=== PATIENT | female | born 1970 | race Caucasian/White ===

== ENCOUNTER → 2017-11-01 10:05 | Outpatient (CLI) | payer BC, SELFPAY ==
[2017-11-01 11:38] LABS: Alanine Aminotransferase 38 U/L (12-78); Albumin Level 3.8 gm/dL (3.4-5.0); Albumin/Globulin Ratio 1.1 (1.1-1.8); Alkaline Phosphatase 94 U/L (46-116); Anion Gap 14.5 mEq/L (5-15); Aspartate Amino Transferase 16 U/L (15-37); Bilirubin,Total 0.4 mg/dL (0.2-1.0); Blood Urea Nitrogen 12 mg/dL (7-18); Calcium 9.4 mg/dL (8.5-10.1); Carbon Dioxide 26 mmol/L (21.0-32.0); Chloride 105 mmol/L (98-107); Chol/HDL Ratio 5.7 (1-3.5); Cholesterol 235 mg/dL (140-200); Creatinine,Serum 0.84 mg/dL (0.55-1.02); Estimated Glomerular Filt Rate 73 ml/min (>60); GFR (African American) 89 ML/MIN (>60); Globulin 3.6 gm/dl (1.3-3.2); Glucose 107 mg/dL (74-106); HDL Cholesterol 41 mg/dL (29-89); LDL Cholesterol 155 mg/dL (0-130); Potassium 4.5 mmoL/L (3.5-5.1); Sodium 141 mmol/L (136-145); Total Protein,Serum 7.4 gm/dL (6.4-8.2); Triglycerides 193 mg/dL (30-200); VLDL Cholesterol 39 mg/dL (0-40)
== END ==
PROVIDERS: Visit Provider Nurse Practitioner Family
DX: Z00.00 Encounter for general adult medical examination without abnormal findings (principal); E78.5 Hyperlipidemia, unspecified
CPT/HCPCS: 36415; 80053; 80061

== ENCOUNTER → 2017-11-03 16:42 | Outpatient (CLI) | payer BC, SELFPAY ==
--- NOTE | 2017-11-03 | MM_ITS ---
MM Dig screening mamm BI w/CAD CAD Screening COMPARISON: Digital mammograms 07/05/2013 and 12/28/2012 INDICATION: There is no personal or family history of breast cancer TECHNIQUE: Standard CC and MLO images were obtained. R2 CAD reviewed. FINDINGS: Scattered fibroglandular densities are seen throughout both breasts and the findings are bilateral and symmetrical. There is a stable benign-appearing nodular density near the axillary tail right breast and this is stable somewhat tubular appearing density lateral aspect of the left breast. There is no suspicious lesion and no suspicious microcalcifications. IMPRESSION: Fibrofatty parenchyma with no suspicious lesion seen BI-RADS Category: 2 Benign Finding(s) RECOMMENDED FOLLOW-UP: 1YR - 1 YEAR FOLLOW-UP (A letter has been sent to the patient regarding results of the study.)
== END ==
PROVIDERS: Family Provider Nurse Practitioner Family; PCP Nurse Practitioner Family; Referring Provider Nurse Practitioner Family; Visit Provider Nurse Practitioner Family
DX: Z12.31 Encounter for screening mammogram for malignant neoplasm of breast (principal)
CPT/HCPCS: 77067

== ENCOUNTER → 2018-07-17 14:48 | Outpatient (CLI) | payer BC, SELFPAY ==
[2018-07-20 12:32] LABS: EBV Ab VCA, IgM <36.0 U/mL (0.0-35.9)
[2018-07-20 12:34] LABS: CMV PCR Negative (Negative)
== END ==
PROVIDERS: Visit Provider Internal Medicine Adolescent Medicine
DX: J35.1 Hypertrophy of tonsils (principal)
CPT/HCPCS: 36415; 86665; 87496

== ENCOUNTER 2018-10-15 18:08 | Observation (INO) | payer BC, SELFPAY ==
[2018-10-15 18:09] VITALS: BP 166/87; PULSE 97; RESP 20; TEMP 37.1; O2SAT 99; BMI 42.0
--- NOTE | 2018-10-15 18:14 | XR_ITS ---
XR chest 2V HISTORY: ITS.REASON: chest pain ORDERING PHYSICIAN: Boubacar Romero MD PATIENT AGE: 48 years COMPARISON: PA and lateral chest 10/09/2007 FINDINGS: This a slightly poor inspiration however lung haley are clear of infiltrate. Cardiac size is normal and the vascularity is normal and is no pleural fluid. There are minor degenerative changes of the thoracic spine. IMPRESSION: Negative chest, no acute finding
[2018-10-15 18:33] LABS: Basophils # 0.1 K/mm3 (0-0.2); Basophils % 1.4 % (0.1-2.0); Eosinophils # 0.3 K/mm3 (0.0-0.4); Hematocrit 37.2 % (37.0-47.0); Hemoglobin 12.6 g/dL (12.2-16.2); Lymphocytes # 2.1 K/mm3 (0.7-4.5); Lymphocytes % 29.3 % (10-50); Mean Corpuscular HGB Conc 33.8 g/dL (31.8-35.4); Mean Corpuscular Hemoglobin 31.6 pg (27.0-31.2); Mean Corpuscular Volume 93.3 fl (81-99); Mean Platelet Volume 7.2 fl (7.4-10.4); Monocytes # 0.4 K/mm3 (0.1-1.0); Monocytes % 5.3 % (1.7-9.3); Neutrophils # 4.4 K/mm3 (1.8-7.8); Platelet Count 334 K/mm3 (142-424); Red Blood Count 3.99 M/mm3 (4.20-5.40); Red Cell Distribution Width 12.7 % (11.5-17.5); White Blood Count 7.3 K/mm3 (4.8-10.8)
[2018-10-15 18:52] LABS: Anion Gap 12.9 mEq/L (5-15); Blood Urea Nitrogen 14 mg/dL (7-18); Calcium 8.9 mg/dL (8.5-10.1); Carbon Dioxide 26 mmol/L (21.0-32.0); Chloride 106 mmol/L (98-107); Creatinine Clearance Estimated 83 mL/min (50-200); Creatinine,Serum 0.89 mg/dL (0.55-1.02); Estimated Glomerular Filt Rate 68 ml/min (>60); GFR (African American) 83 ML/MIN (>60); Glucose 127 mg/dL (74-106); Potassium 3.9 mmoL/L (3.5-5.1); Sodium 141 mmol/L (136-145); Troponin I < 0.02 ng/ml (0.00-0.06)
--- NOTE | 2018-10-15 19:08 | HMH.EDGENADL ---
ED Disposition Clinical Impression: Chest pain, Acute electrocardiogram changes Disposition: Admitted as Observation Condition on Discharge: Good Time of Disposition: 09:30 - Critical Care Critical Care Time: No Attestation: On 10/15/18, the high probability of a clinically significant, sudden or life threatening deterioration of the following system(s) required my full and direct attention, intervention and personal management. The time I documented below is in addition to time spent performing reported procedures but includes the following listed in this critical care notation. Medical Decision Making - Medical Records Medical records reviewed: Yes: I reviewed the patient's medical records. - Ramez Inquiry Pt receiving controlled substance: No Ramez was queried for this patient: No Vital Signs: 10/15/18 18:09 10/15/18 20:27 10/15/18 20:29 Temperature 98.8 F 98.8 F 98.8 F Temperature Source Oral Oral Oral Pulse Rate 99 H Pulse Rate [Left Radial] 97 H 99 H Respiratory Rate 20 15 20 Blood Pressure 155/83 H Blood Pressure [Right Arm] 166/87 H 155/83 H Blood Pressure Mean [Right Arm] 113 107 Blood Pressure Source [Right Arm] Automatic Cuff Blood Pressure Position [Right Arm] Sitting 02 Sat by Pulse Oximetry 99 96 Oxygen Delivery Method Room Air Room Air Room Air - Lab Data Lab results reviewed: Yes: I reviewed the patient's lab results. Lab Results 10/15/18 18:24: WBC 7.3, RBC 3.99 L, Hgb 12.6, Hct 37.2, MCV 93.3, MCH 31.6 H, MCHC 33.8, RDW 12.7, Plt Count 334, MPV 7.2 L, Neut % (Auto) 60.0, Lymph % (Auto) 29.3, [place]eller % (Auto) 5.3, Eos % (Auto) 4.0, Baso % (Auto) 1.4, Neut # (Auto) 4.4, Lymph # (Auto) 2.1, Teller # (Auto) 0.4, Eos # (Auto) 0.3, Baso # (Auto) 0.1 10/15/18 18:24: Sodium 141, Potassium 3.9, Chloride 106, Carbon Dioxide 26, Anion Gap 12.9, BUN 14, Creatinine 0.89, Estimated Creat Clear 83, Estimated GFR 68, Est GFR ( Amer) 83, Glucose 127 H, Calcium 8.9, Troponin I < 0.02 Result diagrams: 10/15/18 18:24 10/15/18 18:24 Orders (Tests/Meds): ED MEDICATIONS Discontinued Medications Generic Name Dose Route Start Last Admin Trade Name Freq PRN Reason Stop Dose Admin Acetaminophen 650 mg 10/15/18 20:27 Acetaminophen 325mg Tab PO 11/14/18 20:26 Q4HP PRN As Needed for Fever or Pain Aspirin 324 mg 10/15/18 18:30 10/15/18 18:35 Aspirin 81mg Chewable Tablet PO 10/15/18 18:31 324 mg ONCE ONE Administration Aspirin 325 mg 10/16/18 09:00 10/16/18 08:19 Aspirin Ec 325mg Tablet PO 11/15/18 08:59 325 mg DAILY LOGAN Administration Sodium Chloride 1,000 mls @ 150 mls/hr 10/15/18 20:27 10/16/18 03:05 Sod Chlor 0.9% 1000ml Bag IV 11/14/18 20:26 150 mls/hr .Q6H40M LOGAN Administration Nitroglycerin 0.5 gm 10/15/18 20:10 10/15/18 20:30 Nitroglycerin 1 Inch Oint Udp TD 10/15/18 20:11 Not Given ONCE ONE Nitroglycerin 1 gm 10/15/18 21:00 10/16/18 08:19 Nitroglycerin 1 Inch Oint Udp TD 11/14/18 20:59 1 gm TID LOGAN Administration Ondansetron HCl 4 mg 10/15/18 20:27 Zofran 4mg/2ml Vial IV 11/14/18 20:26 Q8HP PRN Nausea ORDERS Category Date Time Status Consult to Cardiology [CONS] Routine Cons 10/15/18 20:27 Active - ADRIANA Score for Non-Stemi Age of Patient: 40-49 years old Heart Rate: 90-109 bpm Systolic Blood Pressure: 160-199 mmHg Serum Creatinine: <0.40 mg/dl CHF Killip Class: I-No CHF Other Risk Factors: None Non-Stemi Risk Score: 51 General Adult HPI - General Chief complaint: Chest Pain Stated complaint: chest pain Time Seen by Provider: 10/15/18 19:08 Mode of Arrival: Ambulatory Source of Information: Patient Limitations: No Limitations Description of Symptoms (Recalled from ER Triage Doc. by RN): Pt states yesterday she started with some chest pain, today it started to increase with pain that goes into her left arm. - History of Present Illness HPI narrative: one mon
--- NOTE | 2018-10-15 19:22 | ED_ITS ---
ED Disposition Clinical Impression: Chest pain, Acute electrocardiogram changes Disposition: Admitted as Observation Condition on Discharge: Good Time of Disposition: 09:30 - Critical Care Critical Care Time: No Attestation: On 10/15/18, the high probability of a clinically significant, sudden or life t hreatening deterioration of the following system(s) required my full and direct attention, intervention and personal management. The time I documented below is in addition to time spent performing reported procedures but includes the following listed in this critical care notation. Medical Decision Making - Medical Records Medical records reviewed: Yes: I reviewed the patient's medical records. - Ramez Inquiry Pt receiving controlled substance: No Ramez was queried for this patient: No Vital Signs: 10/15/18 18:09 10/15/18 20:27 10/15/18 20:29 Temperature 98.8 F 98.8 F 98.8 F Temperature Source Oral Oral Oral Pulse Rate 99 H Pulse Rate [Left Radial] 97 H 99 H Respiratory Rate 20 15 20 Blood Pressure 155/83 H Blood Pressure [Right Arm] 166/87 H 155/83 H Blood Pressure Mean [Right Arm] 113 107 Blood Pressure Source [Right Arm] Automatic Cuff Blood Pressure Position [Right Arm] Sitting 02 Sat by Pulse Oximetry 99 96 Oxygen Delivery Method Room Air Room Air Room Air - Lab Data Lab results reviewed: Yes: I reviewed the patient's lab results. Lab Results 10/15/18 18:24: WBC 7.3, RBC 3.99 L, Hgb 12.6, Hct 37.2, MCV 93.3, MCH 31.6 H, MCHC 33.8, RDW 12.7, Plt Count 334, MPV 7.2 L, Neut % (Auto) 60.0, Lymph % (Auto) 29.3, [place] % (Auto) 5.3, Eos % (Auto) 4.0, Baso % (Auto) 1.4, Neut # (Auto) 4.4, Lymph # (Auto) 2.1, [place] # (Auto) 0.4, Eos # (Auto) 0.3, Baso # (Auto) 0.1 10/15/18 18:24: Sodium 141, Potassium 3.9, Chloride 106, Carbon Dioxide 26, Anion Gap 12.9, BUN 14, Creatinine 0.89, Estimated Creat Clear 83, Estimated GFR 68, Est GFR ( Amer) 83, Glucose 127 H, Calcium 8.9, Troponin I < 0.02 Result diagrams: 10/15/18 18:24 10/15/18 18:24 Orders (Tests/Meds): ED MEDICATIONS Discontinued Medications Generic Name Dose Route Start Last Admin Trade Name Freq PRN Reason Stop Dose Admin Acetaminophen 650 mg 10/15/18 20:27 Acetaminophen 325mg Tab PO 11/14/18 20:26 Q4HP PRN As Needed for Fever or Pain Aspirin 324 mg 10/15/18 18:30 10/15/18 18:35 Aspirin 81mg Chewable Tablet PO 10/15/18 18:31 324 mg ONCE ONE Administration Aspirin 325 mg 10/16/18 09:00 10/16/18 08:19 Aspirin Ec 325mg Tablet PO 11/15/18 08:59 325 mg DAILY LOGAN Administration Sodium Chloride 1,000 mls @ 150 mls/hr 10/15/18 20:27 10/16/18 03:05 Sod Chlor 0.9% 1000ml Bag IV 11/14/18 20:26 150 mls/hr .Q6H40M LOGAN Administration Nitroglycerin 0.5 gm 10/15/18 20:10 10/15/18 20:30 Nitroglycerin 1 Inch Oint Udp TD 10/15/18 20:11 Not Given ONCE ONE Nitroglycerin 1 gm 10/15/18 21:00 10/16/18 08:19 Nitroglycerin 1 Inch Oint Udp TD 11/14/18 20:59 1 gm TID LOGAN Administration Ondansetron HCl 4 mg 10/15/18 20:27 Zofran 4mg/2ml Vial IV 11/14/18 20:26
--- NOTE | 2018-10-15 19:49 | PC.NURSE ---
Dr Osman paged at this time
--- NOTE | 2018-10-15 20:02 | PC.NURSE ---
Dr Romero speaking with Dr Osman at this time.
[2018-10-15 20:27] VITALS: BP 155/83; PULSE 99; RESP 15; TEMP 37.1; O2SAT 96
[2018-10-15 20:29] VITALS: BP 155/83; PULSE 99; RESP 20; TEMP 37.1; O2SAT 96
[2018-10-15 20:36] VITALS: BP 184/92; PULSE 74; RESP 18; TEMP 36.7; O2SAT 97; BMI 42.0
[2018-10-15 21:18] VITALS: PULSE 78
[2018-10-15 23:42] LABS: Troponin I < 0.02 ng/ml (0.00-0.06)
[2018-10-16] VITALS: BP 118/53; PULSE 70; PULSE 83; RESP 18; TEMP 36.4; O2SAT 97
[2018-10-16 02:59] LABS: Troponin I < 0.02 ng/ml (0.00-0.06)
[2018-10-16 04:00] VITALS: BP 132/88; PULSE 64; PULSE 70; RESP 18; TEMP 36.4; O2SAT 96
--- NOTE | 2018-10-16 04:35 | PC.NURSE ---
PT NEW ADMIT TONIGHT. NSR ON TELEMETRY. NO COMPLAINTS OF CHEST PAIN. PT AMBULATES INDEPENDENTLY. PT HAS SLEPT INTERMITTENTLY.
[2018-10-16 05:11] VITALS: BMI 42.0
--- NOTE | 2018-10-16 07:09 | P.CONPHA_ITS ---
[facility] Pharmacy VTE Monitoring - Patient Demographics Admission date: 10/15/18 Report Date: 10/16/18 Time: 07:09 Allergies/Adverse Reactions: Patient Allergies NO KNOWN ALLERGIES - NKA Allergy (Unknown, Uncoded 05/09/17 15:35) Height: 1.75 m Weight: 129.331 kg Patient Problems: Current Active Problems (Updated 10/15/18 @ 20:29 by Ronda Goode RN) Chest pain (Acute) Acute electrocardiogram changes (Acute) - VTE Risk Labs: VTE Related Lab Results Hgb 12.6 g/dL (12.2-16.2) 10/15/18 18:24 Hct 37.2 % (37.0-47.0) 10/15/18 18:24 Plt Count 334 K/mm3 (142-424) 10/15/18 18:24 BUN 14 mg/dL (7-18) 10/15/18 18:24 Creatinine 0.89 mg/dL (0.55-1.02) 10/15/18 18:24 Estimated Creat Clear 83 mL/min (50-200) 10/15/18 18:24 VTE Score: 3 VTE Risk Level: Low Risk - Prophylaxis VTE Prophylaxis Ordered?: Yes Types of VTE Prophylaxis: TEDS Knee High Location of Applied Device: Bilateral Lower Extremeties - VTE Diagnosis Confirmed Treatment or plan recommended: Continue Current Treatment
--- NOTE | 2018-10-16 07:18 | HMH.PHAINT ---
MEDICATION RECONCILIATION COMPLETED ON PATIENT USING EXTERNAL FILL HISTORY FROM PHARMACY. -HERON DUDLEY, SOCORROD
--- NOTE | 2018-10-16 07:40 | HMH.HP ---
*Admission Date: 10/15/18 *Chief complaint: chest pain and arm tingling *History of present illness: Ms. 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 She denies any nausea, vomiting, diaphoresis or positional exacerbation of the chest discomfort. She reports that because the symptoms were not resolving and continued to worsen she decided to come to the ER for further assessment. She reported in the ER the symptoms have occurred intermittently for the past few months she has not thought much of them. On initial presentation her EKG obtained while experiencing some mild pain showed sinus rhythm with slight ST depressions in anterolateral leads. A second EKG repeated 2 hours later while pain-free she had sinus rhythm with no ST abnormalities. Nitroglycerin paste was started at the time of the patient states she was pain-free and she was admitted for observation overnight. Troponins have returned normal x3. Patient states she has had some recurrent episodes of chest discomfort overnight although not as intense. She does have some chest wall tenderness but states this is different than the chest pain which brought her to the ER. Of note she has been seen multiple times in the past few months in our office for sore throat. Found to have tonsillar hypertrophy. Was last seen over the weekend on Monday where steroids were initiated. Took 1 dose and has had resolution of her sore throat though her tonsils are still quite enlarged. She also denies history of hypertension, tobacco use or diabetes. She relates a remote stress test that was unremarkable. Cardiology consulted for evaluation recommendations [facility] History I have reviewed the patient's past medical history: Yes Medical History: Reports:: Hyperlipidemia Denies:: Cancer, Diabetes Mellitus Type 1, Diabetes Mellitus Type 2, MRSA *Have you ever received a pneumonia vaccine?: No *Have you received a flu vaccine this season?: No Other Medical History: Reports: Sinus Problems Other Surgeries: Yes: Colonoscopy Amputation: No Fractures: No - *Social History Educational Level: Completed College Smoking Status: Former smoker Alcohol Intake: never Alcohol Intake Frequency:: holidays/special occasions only *Occupational Status:: employed Housing: house Household Members: family *Travel in the last 8 weeks: None - Psychiatric History Expresses thoughts of harming self/others: None Suicide Plan Description: No Plan Family Hx:: Cancer, Diabetes, Heart Attack, Hyperlipidemia, Hypertension, Stroke, Thyroid Disorder Review of Systems - Review of Systems Review of systems:: pertinent systems reviewed and negative unless documented below - *Neurologic Denies fainting, Denies tingling Meds Home Medications Medication Instructions Recorded Confirmed Type Atorvastatin Calcium [Atorvastatin 20 mg PO HS 10/15/18 10/15/18 History 20mg Tab] Fluticasone Propionate 1 spray IN DAILY 10/15/18 10/16/18 History Vilazodone HCl [Viibryd 20mg 20 mg PO DAILY 10/15/18 10/15/18 History Tablet] Allergies Allergy/AdvReac Type Severity Reaction Status Date / Time NO KNOWN ALLERGIES - NKA Allergy Unknown Uncoded 05/09/17 15:35 Exam Vital signs and Labs for Last 24 Hours: Temp Pulse Resp BP Pulse Ox 97.6 F 64 18 132/88 96 10/16/18 04:00 10/16/18 04:00 10/16/18 04:00 10/16/18 04:00 10/16/18 04:00 Laboratory Results - last 24 hr 10/15/18 18:24: WBC 7.3, RBC 3.99 L, Hgb 12.6, Hct 37.2, MCV 93.3, MCH 31.6 H, MCHC 33.8, RDW 12.7, Plt Count 334, MPV 7.2 L, Neut % (Auto) 60.0, Lymph % (Auto) 29.3, [place] % (Auto) 5.3, Eos % (Auto) 4.0, Baso % (Auto) 1.4, Neut # (Au
--- NOTE | 2018-10-16 07:50 | HMH.CNCARD ---
History of Present Illness Consult date: 10/16/18 Requesting physician: Harsh Osman Consult reason: chest pain Chief complaint: chest pain, EKG changes Additional Medical History:: 1. FH of CAD in parents and grandparents in their 50's 2. Hyperlipidemia 3. 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 Patient denies any nausea, vomiting, diaphoresis or positional exacerbation of the chest discomfort. Symptoms continue to worsen and she came to the ER for evaluation. Initial EKG when patient was pain-free showed sinus rhythm with no acute changes. A second EKG reportedly with pain showed some slight ST depression in the anterolateral leads. Nitroglycerin paste was started at the time of the patient states she was pain-free and she was admitted for observation overnight. Troponins have returned normal x3. Patient states she has had some recurrent episodes of chest discomfort overnight although not as intense. She does have some chest wall tenderness but states this is different than the chest pain which brought her to the ER. Patient has been seen in Dr. Osman's office several times recently with the most recent one 4 days ago for sore throat. She did receive a prescription for steroids to help with swelling and discomfort. She states she only took 1 dose of this over the weekend. Patient denies hypertension, tobacco use or diabetes. She relates a remote stress test that was unremarkable. Cardiology consulted for evaluation recommendations [facility] History Medical History: Reports:: Hyperlipidemia Denies:: Cancer, Diabetes Mellitus Type 1, Diabetes Mellitus Type 2, MRSA *Have you ever received a pneumonia vaccine?: No *Have you received a flu vaccine this season?: No Other Medical History: Reports: Sinus Problems Other Surgeries: Yes: Colonoscopy Amputation: No Fractures: No - *Social History Educational Level: Completed College Smoking Status: Former smoker Alcohol Intake: never Alcohol Intake Frequency:: holidays/special occasions only *Occupational Status:: employed Housing: house Household Members: family *Travel in the last 8 weeks: None - Psychiatric History Expresses thoughts of harming self/others: None Suicide Plan Description: No Plan Family Hx:: Cancer, Diabetes, Heart Attack, Hyperlipidemia, Hypertension, Stroke, Thyroid Disorder Meds Home Medications Medication Instructions Recorded Confirmed Type Atorvastatin Calcium [Atorvastatin 20 mg PO HS 10/15/18 10/15/18 History 20mg Tab] Fluticasone Propionate 1 spray IN DAILY 10/15/18 10/16/18 History Vilazodone HCl [Viibryd 20mg 20 mg PO DAILY 10/15/18 10/15/18 History Tablet] Allergies Allergy/AdvReac Type Severity Reaction Status Date / Time NO KNOWN ALLERGIES - NKA Allergy Unknown Uncoded 05/09/17 15:35 Review of Systems - *Cardiovascular Reports chest pain, Denies shortness of breath - *Respiratory Denies shortness of breath - *Gastrointestinal Denies abdominal pain, Denies nausea, Denies vomiting - *Genitourinary Denies blood in urine - *Musculoskeletal Denies joint pain, Denies back pain - *Neurologic Denies fainting, Denies tingling Exam Vital signs and Labs for Last 24 Hours: Temp Pulse Resp BP Pulse Ox 97.6 F 64 18 132/88 96 10/16/18 04:00 10/16/18 04:00 10/16/18 04:00 10/16/18 04:00 10/16/18 04:00 Laboratory Results - last 24 hr 10/15/18 18:24: WBC 7.3, RBC 3.99 L, Hgb 12.6, Hct 37.2, MCV 93.3, MCH 31.6 H, MCHC 33.8, RDW 12.7, Plt Count 334, MPV 7.2 L, Neut % (Auto) 60.0, Lymph % (Auto) 29.3, [place] % (Auto) 5.3, Eos % (Auto) 4.0, Baso % (Auto) 1.4, Neut # (Auto) 4.4,
--- NOTE | 2018-10-16 07:54 | P.CONS_ITS ---
History of Present Illness Consult date: 10/16/18 Requesting physician: Harsh Osman Consult reason: chest pain Chief complaint: chest pain, EKG changes Additional Medical History:: 1. FH of CAD in parents and grandparents in their 50's 2. Hyperlipidemia 3. 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 Patient denies any nausea, vomiting, diaphoresis or positional exacerbation of the chest discomfort. Symptoms continue to worsen and she came to the ER for evaluation. Initial EKG when patient was pain-free showed sinus rhythm with no acute changes. A second EKG reportedly with pain showed some slight ST depression in the anterolateral leads. Nitroglycerin paste was star karishma at the time of the patient states she was pain-free and she was admitted for observation overnight. Troponins have returned normal x3. Patient states she has had some recurrent episodes of chest discomfort overnight although not as intense. She does have some chest wall tenderness but states this is different than the chest pain which brought her to the ER. Patient has been seen in Dr. Osman's office several times recently with the most recent one 4 days ago for sore throat. She did receive a prescription for steroids to help with swelling and discomfort. She states she only took 1 dose of this over the weekend. Patient denies hypertension, tobacco use or diabetes. She relates a remote stress test that was unremarkable. Cardiology consulted for evaluation recommendations [facility] History Medical History: Reports:: Hyperlipidemia Denies:: Cancer, Diabetes Mellitus Type 1, Diabetes Mellitus Type 2, MRSA *Have you ever received a pneumonia vaccine?: No *Have you received a flu vaccine this season?: No Other Medical History: Reports: Sinus Problems Other Surgeries: Yes: Colonoscopy Amputation: No Fractures: No - *Social History Educational Level: Completed College Smoking Status: Former smoker Alcohol Intake: never Alcohol Intake Frequency:: holidays/special occasions only *Occupational Status:: employed Housing: house Household Members: family *Travel in the last 8 weeks: None - Psychiatric History Expresses thoughts of harming self/others: None Suicide Plan Description: No Plan Family Hx:: Cancer, Diabetes, Heart Attack, Hyperlipidemia, Hypertension, Stroke, Thyroid Disorder Meds Home Medications Medication Instructions Recorded Confirmed Type Atorvastatin Calcium [Atorvastatin 20 mg PO HS 10/15/18 10/15/18 History 20mg Tab] Fluticasone Propionate 1 spray IN DAILY 10/15/18 10/16/18 History Vilazodone HCl [Viibryd 20mg 20 mg PO DAILY 10/15/18 10/15/18 History Tablet] Allergies Allergy/AdvReac Type Severity Reaction Status Date / Time NO KNOWN ALLERGIES - NKA Allergy Unknown Uncoded 05/09/17 15:35 Review of Systems - *Cardiovascular Reports chest pain, Denies shortness of breath - *Respiratory Denies shortness of breath - *Gastrointestinal Denies abdominal pain, Denies nausea, Denies vomiting - *Genitourinary Denies blood in urine - *Musculoskeletal Denies joint pain, Denies back pain - *
[2018-10-16 08:00] VITALS: BP 172/97; PULSE 77; RESP 20; TEMP 36.8; O2SAT 96
--- NOTE | 2018-10-16 08:02 | CA_ITS ---
PROCEDURE: 2-D M-mode and color Doppler study INDICATIONS FOR THE TEST: Chest pain X COPD Heart Murmur Tobacco SmokingEX Palpitations Fatigue Syncope Edema Hypertension Diabetes Mellitus Rheumatic Fever SOB SILVERIO ObesityXHyperlipidemiaX Family History HDX Additional History PATIENT INFORMATION HEIGHT: 69 WEIGHT:285 GENDER: Female B/P:132/88 2-D/M-MODE INTERPRETATION: 2-D MEASUREMENTS OBSERVED VALUES IN CMS Right Ventricular Dimension (RVDd) 3.1 Interventricular Septum (Thickness)(IVsd) 1.0 Left Ventricular Internal Dimensions(LVIDd) 5.4 Left Ventricular Posterior Wall (Thickness)(LVPWd) 1.0 Aortic Root 2.6 Aortic Cusp Separation 2.1 Left Atrial Dimensions (LAD) 3.5 2D 1. Left atrium is upper limit of the normal size, left ventricle is normal size, there is no concentric left ventricular hypertrophy, visually estimated ejection fraction of 55% with no regional wall motion abnormality. 2. The right atrium and right ventricle are mildly enlarged with normal contractility. 3. The aortic, mitral and tricuspid valve are grossly normal. 4. The pulmonic valve is poorly visualized. 5. No significant pericardial effusion noted. DOPPLER INTERROGATION: Doppler interrogation of the aortic, mitral and tricuspid valvular presence of mild mitral and tricuspid regurgitation, tricuspid regurgitation jet velocity is inadequate for calculation of the right ventricular systolic pressure, diastolic parameters are within normal range. CONCLUSION: 1. Normal left ventricular size, preserved left ventricular systolic function, visually estimated ejection fraction 55% with no regional wall motion abnormality, diastolic parameters are within normal range. 2. Mildly enlarged right ventricle with normal contractility. 3. Mild mitral and tricuspid regurgitation 4. No significant pericardial effusion noted.
--- NOTE | 2018-10-16 08:27 | HMH.HPDC ---
General - General Admission date:: 10/15/18 Discharge date: 10/16/18 *Admission Date: 10/15/18 *Chief complaint: Chest pain and sore arm *History of present illness: Ms. 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 She denies any nausea, vomiting, diaphoresis or positional exacerbation of the chest discomfort. She reports that because the symptoms were not resolving and continued to worsen she decided to come to the ER for further assessment. She reported in the ER the symptoms have occurred intermittently for the past few months she has not thought much of them. On initial presentation her EKG obtained while experiencing some mild pain showed sinus rhythm with slight ST depressions in anterolateral leads. A second EKG repeated 2 hours later while pain-free she had sinus rhythm with no ST abnormalities. Nitroglycerin paste was started at the time of the patient states she was pain-free and she was admitted for observation overnight. Troponins have returned normal x3. Patient states she has had some recurrent episodes of chest discomfort overnight although not as intense. She does have some chest wall tenderness but states this is different than the chest pain which brought her to the ER. Of note she has been seen multiple times in the past few months in our office for sore throat. Found to have tonsillar hypertrophy. Was last seen over the weekend on Monday where steroids were initiated. Took 1 dose and has had resolution of her sore throat though her tonsils are still quite enlarged. She also denies history of hypertension, tobacco use or diabetes. She relates a remote stress test that was unremarkable. Cardiology consulted for evaluation recommendations [facility] History I have reviewed the patient's past medical history: Yes Medical History: Reports:: Hyperlipidemia Denies:: Cancer, Diabetes Mellitus Type 1, Diabetes Mellitus Type 2, MRSA *Have you ever received a pneumonia vaccine?: No *Have you received a flu vaccine this season?: No Other Medical History: Reports: Sinus Problems Other Surgeries: Yes: Colonoscopy Amputation: No Fractures: No - *Social History Educational Level: Completed College Smoking Status: Former smoker Alcohol Intake: never Alcohol Intake Frequency:: holidays/special occasions only *Occupational Status:: employed Housing: house Household Members: family *Travel in the last 8 weeks: None - Psychiatric History Expresses thoughts of harming self/others: None Suicide Plan Description: No Plan Family Hx:: Cancer, Diabetes, Heart Attack, Hyperlipidemia, Hypertension, Stroke, Thyroid Disorder Review of Systems - Review of Systems Review of systems:: pertinent systems reviewed and negative unless documented below - *Neurologic Denies fainting, Denies tingling Exam Vital signs and Labs for Last 24 Hours: Temp Pulse Resp BP Pulse Ox 98.3 F 77 20 172/97 H 96 10/16/18 08:00 10/16/18 08:00 10/16/18 08:00 10/16/18 08:00 10/16/18 08:00 Laboratory Results - last 24 hr 10/15/18 18:24: WBC 7.3, RBC 3.99 L, Hgb 12.6, Hct 37.2, MCV 93.3, MCH 31.6 H, MCHC 33.8, RDW 12.7, Plt Count 334, MPV 7.2 L, Neut % (Auto) 60.0, Lymph % (Auto) 29.3, Tripp % (Auto) 5.3, Eos % (Auto) 4.0, Baso % (Auto) 1.4, Neut # (Auto) 4.4, Lymph # (Auto) 2.1, Tripp # (Auto) 0.4, Eos # (Auto) 0.3, Baso # (Auto) 0.1 10/15/18 18:24: Sodium 141, Potassium 3.9, Chloride 106, Carbon Dioxide 26, Anion Gap 12.9, BUN 14, Creatinine 0.89, Estimated Creat Clear 83, Estimated GFR 68, Est GFR ( Amer) 83, Glucose 127 H, Calcium 8.9, Troponin I < 0.02 10/15/18 23:20: Troponin I < 0.02 10/16/18 02:10: Troponin I < 0.02
--- NOTE | 2018-10-16 10:27 | HMH.PHAINT ---
DISCHARGE MEDICATIONS--DISCHARGE MEDICATIONS DISCUSSED WITH PATIENT. NEW MEDICATION ADDED: LISINOPRIL/HCTZ
== END 2018-10-16 09:45 | disposition home or self-care (01) ==
LOC: ER 18:48 → 2ND 20:19
PROVIDERS: Admitting Provider Internal Medicine Adolescent Medicine; Emergency Provider Emergency Medicine; PCP Internal Medicine Adolescent Medicine; Visit Provider Internal Medicine Adolescent Medicine
DX: R07.9 Chest pain, unspecified (principal); R94.31 Abnormal electrocardiogram [ECG] [EKG]; E78.5 Hyperlipidemia, unspecified; E66.01 Morbid (severe) obesity due to excess calories; M79.602 Pain in left arm; R20.0 Anesthesia of skin; Z79.899 Other long term (current) drug therapy; Z68.41 Body mass index [BMI] 40.0-44.9, adult
CPT/HCPCS: 36415; 71046; 80048; 84484; 85025; 93005; 93306; 99284; G0378

== ENCOUNTER → 2018-11-14 08:10 | Outpatient (CLI) | payer BC, SELFPAY ==
--- NOTE | 2018-11-14 08:13 | MM_ITS ---
MM Dig screening mamm BI w/CAD CAD Screening COMPARISON: Digital mammograms with CAD 11/03/2017 and 07/05/2013 INDICATION: There is no personal or family history of breast cancer TECHNIQUE: Standard CC and MLO images were obtained. R2 CAD reviewed. FINDINGS: Minimal scattered fibroglandular densities are seen throughout both breast on the background of fatty breast parenchyma. There is a stable tiny nodular density outer quadrant right breast only definitely seen on the CC projection. There is no suspicious lesion and there are no suspicious microcalcifications. IMPRESSION: Fibrofatty parenchyma with no suspicious lesion seen BI-RADS Category: 1 Negative RECOMMENDED FOLLOW-UP: 1YR - 1 YEAR FOLLOW-UP (A letter has been sent to the patient regarding results of the study.)
== END ==
PROVIDERS: PCP Internal Medicine Adolescent Medicine; Visit Provider Internal Medicine Adolescent Medicine
DX: Z12.31 Encounter for screening mammogram for malignant neoplasm of breast (principal)
CPT/HCPCS: 77067

== ENCOUNTER → 2019-01-19 09:34 | Outpatient (CLI) | payer BC, SELFPAY ==
[2019-01-19 10:03] LABS: Basophils # 0.1 K/mm3 (0-0.2); Basophils % 0.8 % (0.1-2.0); Eosinophils # 0.2 K/mm3 (0.0-0.4); Eosinophils % 2.3 % (0.1-12.0); Lymphocytes # 1.4 K/mm3 (0.7-4.5); Lymphocytes % 17.7 % (10-50); Mean Corpuscular HGB Conc 32.5 g/dL (31.8-35.4); Mean Corpuscular Volume 95.2 fl (81-99); Mean Platelet Volume 7.3 fl (7.4-10.4); Monocytes # 0.6 K/mm3 (0.1-1.0); Monocytes % 7.5 % (1.7-9.3); Neutrophils # 5.6 K/mm3 (1.8-7.8); Neutrophils % 71.7 % (37.0-80.0); Platelet Count 320 K/mm3 (142-424); Red Cell Distribution Width 13.3 % (11.5-17.5); White Blood Count 7.8 K/mm3 (4.8-10.8)
[2019-01-19 10:41] LABS: Hemoglobin A1C 6.2 % (0.0-7.0)
[2019-01-19 12:49] LABS: Alanine Aminotransferase 38 U/L (12-78); Albumin Level 3.7 gm/dL (3.4-5.0); Albumin/Globulin Ratio 1.1 (1.1-1.8); Alkaline Phosphatase 93 U/L (46-116); Aspartate Amino Transferase 23 U/L (15-37); Bilirubin,Total 0.3 mg/dL (0.2-1.0); Blood Urea Nitrogen 13 mg/dL (7-18); Calcium 9.1 mg/dL (8.5-10.1); Carbon Dioxide 27 mmol/L (21.0-32.0); Cholesterol 163 mg/dL (140-200); Creatinine,Serum 0.79 mg/dL (0.55-1.02); Estimated Glomerular Filt Rate 78 ml/min (>60); GFR (African American) 95 ML/MIN (>60); Globulin 3.5 gm/dl (1.3-3.2); Glucose 116 mg/dL (74-106); HDL Cholesterol 41 mg/dL (29-89); LDL Cholesterol 85 mg/dL (0-130); Thyroid Stimulating Hormone 1.28 uIU/ml (0.358-3.740); Total Protein,Serum 7.2 gm/dL (6.4-8.2); Triglycerides 184 mg/dL (30-200); VLDL Cholesterol 37 mg/dL (0-40)
[2019-01-19 12:57] LABS: Anion Gap 13.5 mEq/L (5-15); Chloride 102 mmol/L (98-107); Potassium 4.5 mmoL/L (3.5-5.1); Sodium 138 mmol/L (136-145)
== END ==
PROVIDERS: Visit Provider Internal Medicine Adolescent Medicine
DX: E78.5 Hyperlipidemia, unspecified (principal); E66.01 Morbid (severe) obesity due to excess calories
CPT/HCPCS: 36415; 80053; 80061; 83036; 84443; 85025

== ENCOUNTER → 2019-07-23 17:41 | Outpatient (CLI) | payer BC, SELFPAY ==
[2019-07-23 19:37] LABS: Hemoglobin A1C 5.9 % (4.0-6.0)
== END ==
PROVIDERS: Visit Provider Nurse Practitioner Family
DX: R73.9 Hyperglycemia, unspecified (principal)
CPT/HCPCS: 36415; 83036

== ENCOUNTER → 2020-04-10 16:38 | Outpatient (CLI) | payer BC, SELFPAY | PROVIDERS: PCP Internal Medicine Adolescent Medicine; Visit Provider Internal Medicine Adolescent Medicine | DX: Z03.818 Encounter for observation for suspected exposure to other biological agents ruled out (principal); R19.7 Diarrhea, unspecified | CPT/HCPCS: U0003 ==

== ENCOUNTER → 2020-04-24 07:03 | Outpatient (CLI) | payer BC, SELFPAY ==
[2020-04-24 07:53] LABS: Chloride 105 mmol/L (98-107); Potassium 4.8 mmoL/L (3.5-5.1); Sodium 139 mmol/L (136-145)
[2020-04-24 07:55] LABS: Alanine Aminotransferase 55 U/L (12-78); Alkaline Phosphatase 86 U/L (38-126); Aspartate Amino Transferase 38 U/L (14-36); Bilirubin,Total 0.4 mg/dl (0.2-1.3); Blood Urea Nitrogen 18 mg/dl (7-17); Estimated Glomerular Filt Rate 77 ml/min (>60); GFR (African American) 93 ML/MIN (>60)
[2020-04-24 07:56] LABS: Albumin Level 4.3 g/dl (3.5-5.0); Albumin/Globulin Ratio 1.4 (1.1-1.8); Anion Gap 11.8 mEq/L (5-15); Calcium 9.6 mg/dl (8.4-10.2); Carbon Dioxide 27 mmol/L (22.0-30.0); Chol/HDL Ratio 3.7 (1-3.5); Cholesterol 185 mg/dl (140-200); Glucose 120 mg/dl (74-100); HDL Cholesterol 50 mg/dl (40-60); Total Protein,Serum 7.3 g/dl (6.3-8.2); Triglycerides 197 mg/dl (30-150); VLDL Cholesterol 39 mg/dL (0-40)
[2020-04-24 08:07] LABS: Direct LDL Cholesterol 96.24 mg/dL (100-129)
[2020-04-24 09:56] LABS: Hemoglobin A1C 5.7 % (4.0-6.0)
== END ==
PROVIDERS: Visit Provider Nurse Practitioner Family
DX: Z00.00 Encounter for general adult medical examination without abnormal findings (principal); R73.03 Prediabetes; E78.5 Hyperlipidemia, unspecified; I10 Essential (primary) hypertension
CPT/HCPCS: 36415; 80053; 80061; 83036

== ENCOUNTER → 2020-12-24 16:47 | Outpatient (CLI) | payer BC, SELFPAY ==
--- NOTE | 2020-12-24 16:49 | MM_ITS ---
PROCEDURE INFORMATION: Exam: MG Screening 3D Mammography Exam date and time: 12/24/2020 4:49 PM Age: 50 years old Clinical indication: Encounter for screening mammogram for malignant neoplasm of breast TECHNIQUE: Imaging protocol: Screening tomosynthesis and 2D mammography including computer-aided detection (CAD) when performed. COMPARISON: No relevant prior studies available. FINDINGS: MAMMOGRAPHY: Breast composition: The breast tissue is composed of scattered areas of fibroglandular density. Mass: None. Architectural distortion: None. Calcifications: No suspicious calcifications. Asymmetric density: None. Skin thickening: None. Axillary adenopathy: None. IMPRESSION: No mammographic evidence of malignancy. Annual screening is recommended unless otherwise clinically indicated. ASSESSMENT: BI-RADS Category 1: Negative
== END ==
PROVIDERS: PCP Internal Medicine Adolescent Medicine; Visit Provider Internal Medicine Adolescent Medicine
DX: Z12.31 Encounter for screening mammogram for malignant neoplasm of breast (principal)
CPT/HCPCS: 77063; 77067

== ENCOUNTER → 2021-02-18 16:02 | Outpatient (CLI) | payer BC, SELFPAY | PROVIDERS: PCP Internal Medicine Adolescent Medicine; Visit Provider Nurse Practitioner | DX: Z20.822 Contact with and (suspected) exposure to COVID-19 (principal) | CPT/HCPCS: C9803; U0003; U0005 ==

== ENCOUNTER → 2021-11-08 09:11 | Outpatient (CLI) | payer BC, SELFPAY | PROVIDERS: PCP Nurse Practitioner Family; Visit Provider Surgery | DX: Z01.812 Encounter for preprocedural laboratory examination (principal); Z20.822 Contact with and (suspected) exposure to COVID-19; Z12.11 Encounter for screening for malignant neoplasm of colon | CPT/HCPCS: C9803; U0003; U0005 ==

== ENCOUNTER 2021-11-09 06:34 | Day surgery (SDC) | payer BC, SELFPAY ==
[2021-11-04 12:40] VITALS: BMI 38.7
[2021-11-09 06:48] VITALS: BP 135/71; PULSE 93; RESP 20; TEMP 36.3; O2SAT 97
--- NOTE | 2021-11-09 07:11 | HMH.ANESCL ---
[facility] Anesthesia Checklist - Patient Identification Patient Identification: Arm Band - Structural Data Admitted From: Home Planned Operative Procedure/s: Colonoscopy Consent for Planned Operative Procedure(s) Verified: Yes Verified Documents: Surgical Consent, History and Physical - NPO Status Verified Time NPO: 00:00 - Additional verifications Anesthesia Reactions: No - Airway Assessment C-Spine Mobility Assessed: Yes (mp2) TMJ Mobility Assessed: Yes Dentition: Good Dentition - Neurological Assessment Level of Consciousness: Awake, Alert - Anesthesia Plan Anesthesia Risk discussed: Yes Anesthesia Plan: Verified ASA Class: II Anesthesia Type: General [facility] History I have reviewed the patient's past medical history: Yes Medical History: Reports:: Depression, Hyperlipidemia, Hypertension Denies:: Cancer, Diabetes Mellitus Type 1, Diabetes Mellitus Type 2, Internal Pacemaker, MRSA, Seizures *Have you ever received a pneumonia vaccine?: No *Have you received a flu vaccine this season?: Yes Other Medical History: Reports: Sinus Problems Anesthesia experience/problems:: nac Other Surgeries: Yes: Colonoscopy. No: Pacemaker Amputation: No Fractures: No - *Social History Last grade of school completed: Some college Smoking Status: Former smoker Alcohol Intake: never Alcohol Intake Frequency:: holidays/special occasions only Substance Use Type: denies use *Occupational Status:: employed Housing: house Household Members: family *Travel in the last 8 weeks: None - Psychiatric History Pschychiatric History:: Reports:: Depression Family Hx:: Cancer, Diabetes, Heart Attack
[2021-11-09 07:29] LABS: HCG Qualitative, Serum Negative (Negative)
[2021-11-09 07:33] VITALS: O2SAT 97
[2021-11-09 08:21] VITALS: BP 135/76; PULSE 90; RESP 16; TEMP 36.4; O2SAT 96
--- NOTE | 2021-11-09 08:22 | P.PCN_ITS ---
- Procedure: Date: 11/09/21 Patient Date of :: 1970 Procedure Performed:: Colonoscopy Indications:: Screening Family history colon cancer Performing Provider:: Juan Carlos Cesar MD Referring Provider:: Selena Matute APRN Sedation:: Monitored anesthesia care Procedure:: After informed consent was obtained the patient was taken to the endoscopy suite . Sedation ensued after the patient was transferred to the left lateral decubitus position. Pulse, blood pressure, and oxygen saturation were monitored throughout the procedure. Digital rectal exam revealed no significant abnormality. The colonoscope was placed in position. The entire colon was evaluated. The colonoscope was carefully removed and the patient was transferred to recovery in stable condition. Please see findings and specimens below for detail. Findings:: Bowel preparation fair to moderate Hemorrhoidal cushions Moderate spasticity and tortuosity Specimens:: None Recommendations:: Repeat colonoscopy in approximately 5 years secondary to family history Complications:: No immediate Estimated blood obtained (mL): 0
[2021-11-09 08:31] VITALS: BP 134/75; PULSE 95; RESP 16; O2SAT 98
[2021-11-09 08:41] VITALS: BP 155/63; PULSE 88; RESP 16; O2SAT 98
[2021-11-09 08:51] VITALS: BP 131/79; PULSE 80; RESP 16; TEMP 36.4; O2SAT 99
== END 2021-11-09 09:01 | disposition home or self-care (01) ==
LOC: OUTP 06:36
PROVIDERS: PCP Internal Medicine Adolescent Medicine; Visit Provider Surgery
PROC: 0DJD8ZZ Inspection of Lower Intestinal Tract, Via Natural or Artificial Opening Endoscopic (ICD-10-PCS; CPT 45378; principal; 2021-11-09 07:30)
DX: Z12.11 Encounter for screening for malignant neoplasm of colon (principal); Z80.0 Family history of malignant neoplasm of digestive organs; F32.A Depression, unspecified; E78.5 Hyperlipidemia, unspecified; I10 Essential (primary) hypertension
CPT/HCPCS: 45378; 84703

== ENCOUNTER → 2021-11-11 08:37 | Outpatient (CLI) | payer BC, SELFPAY ==
--- NOTE | 2021-11-11 08:44 | US_ITS ---
FINAL REPORT CLINICAL HISTORY: ELEVATED LIVER ENZYMES FINDINGS: Sonographic images of the right upper quadrant were obtained. The pancreas is partially obscured. The liver is fatty infiltrated. There is an 11 mm hypoechoic structure in the left lobe of liver of uncertain etiology that could represent focal sparing or a small mass. There is sludge in the gallbladder. There is no evidence of biliary ductal dilatation. The common duct measures 4mm. Limited images of the right kidney are unremarkable. IMPRESSION: Fatty infiltrated liver with an 11 mm hypodense structure in the left lobe of uncertain etiology. This could represent focal sparing or a small mass. If indicated, follow up liver mass protocol CT or MRI. Sludge in the gallbladder. Reviewed, Interpreted and Dictated by Que Morales III, MD Transcribed by Kiel Smith Authenticated and [facility]
== END ==
PROVIDERS: PCP Internal Medicine Adolescent Medicine; Visit Provider Internal Medicine Adolescent Medicine
DX: R74.8 Abnormal levels of other serum enzymes (principal)
CPT/HCPCS: 76705

== ENCOUNTER → 2021-12-06 14:30 | Outpatient (CLI) | payer BC, OTHER, SELFPAY ==
--- NOTE | 2021-12-06 15:04 | CT_ITS ---
FINAL REPORT TECHNIQUE: Axial CT images of the abdomen were obtained without contrast. Coronal reformatted images were also obtained.This study was performed with techniques to keep radiation doses as low as reasonably achievable (ALARA). Individualized dose reduction techniques using automated exposure control or adjustment of mA and/or kV according to the patient''s size were employed. CLINICAL HISTORY: LIVER MASS, elevated liver enzymes FINDINGS: There are several calcified granulomas in the right lung base. No hepatic masses identified on these unenhanced images. The gallbladder appears normal without evidence of gallstones. There is no evidence of biliary ductal dilatation. The pancreas appears normal. The spleen size is within normal limits. There is no evidence of renal stone or hydronephrosis. There is no evidence of adenopathy. No abnormal fluid collection is seen. There is an umbilical hernia containing fat. The appendix is normal. IMPRESSION: No hepatic mass is identified. Reviewed, Interpreted and Dictated by Que Morales III, MD Transcribed by Milvia Escobedo Authenticated and . [facility]
== END ==
PROVIDERS: PCP Nurse Practitioner Family; Visit Provider Nurse Practitioner Family
DX: R16.0 Hepatomegaly, not elsewhere classified (principal)
CPT/HCPCS: 74150

== ENCOUNTER 2022-08-27 11:25 | Emergency (ER) | payer BC, SELFPAY ==
[2022-08-27 11:50] VITALS: BP 148/81; PULSE 99; RESP 20; TEMP 36.9; O2SAT 97; BMI 46.9
--- NOTE | 2022-08-27 12:06 | EXP.UTC ---
Discharge Plan Disposition Patient Disposition: Home, Self-Care Condition: Good Prescriptions Prescriptions: New azithromycin [Zithromax] 250 mg tablet 250 mg PO UD DOSE PK Qty: 6 0RF Rx Instructions: Take two (2) tablets today, then one (1) tablet days #2 thru #5 ciprofloxacin HCl 0.3 % drops See Rx Instructions .ROUTE .COMPLEX Qty: 5 0RF Rx Instructions: put 1 drp in both eyes every 2hr x2days; then 4 times/day x5days benzonatate [benzonatate] 100 mg capsule 100 mg PO TIDP PRN (Reason: Cough) Qty: 30 0RF No Action lisinopril 10 mg tablet 10 mg PO DAILY Label Comments: 1/2 tab bupropion HCl 300 mg tablet extended release 24 hr 300 mg PO DAILY Label Comments: TAKE 1 TABLET BY MOUTH EVERY 24 HOURS cetirizine 10 MG capsule 10 mg PO DAILY vortioxetine 20 MG tablet 20 mg PO DAILY rosuvastatin 20 mg Tablet 20 mg PO DAILY Referrals Follow up/Referrals: Bentley Neely MD [Primary Care Provider] - See instructions Activity Restrictions/Add. Instructions Additional Instructions/Restrictions: Drink plenty of fluids. Take tylenol or ibuprofen for pain or fever. Take the medications as directed. Follow up with your regular doctor. GO TO THE ER FOR ANY WORSENING SYMPTOMS Use the eye drops as directed. Strict hand washing in the house hold, because conjunctivitis is very contagious. Follow up with your regular doctor. GO TO THE ER FOR ANY WORSENING SYMPTOMS OR CONCERNS Clinical Impressions Clinical Impression: Sinusitis, Conjunctivitis Instructions Patient Instructions: How to Instill Eye Drops, Sinusitis, DI for Sinusitis, DI for Conjunctivitis Discharge ED Provider: Harsh Christianson [facility] General Stated complaint: Possible pink eye left eye, head cold Mode of Arrival: Ambulatory Source of Information: Patient Limitations: No Limitations Time Seen by Provider: 08/27/22 12:03 Description of Symptoms (Recalled from Triage Doc. by RN): left eye red and irritation, sinus congestion, runny nose, and non productive cough HEENT Symptoms (Recalled from RN notes): Yes Resp Symptoms (Recalled from RN notes): No Skin Symptoms (Recalled from RN notes): No MS Symptoms (Recalled from RN notes): No Functional Status (Recalled from RN notes): n/a History of Present Illness Provider Complaint: She c/o left eye redness and matting and she has had sinus congestion for the past 5 days. Related Data Home Medications Medication Instructions Recorded Confirmed bupropion HCl 300 mg 24 hr tablet, 300 mg PO DAILY Depression 07/01/19 08/27/22 extended release lisinopril 10 mg tablet 10 mg PO DAILY bp 07/01/19 08/27/22 cetirizine 10 mg capsule 10 mg PO DAILY allergies 11/04/21 11/09/21 vortioxetine 20 mg tablet 20 mg PO DAILY Depression 11/04/21 11/09/21 rosuvastatin 20 mg tablet 20 mg PO DAILY High cholesterol 08/27/22 08/27/22 Previous Rx's Medication Instructions Recorded azithromycin 250 mg tablet 250 mg PO UD DOSE PK #6 tabs 08/27/22 (Zithromax) benzonatate 100 mg capsule 100 mg PO TIDP PRN Cough #30 caps 08/27/22 ciprofloxacin HCl 0.3 % eye drops See Rx Instructions ophthalmic 08/27/22 (eye) .COMPLEX #5 mL Allergies Allergy/AdvReac Type Severity Reaction Status Date / Time NO KNOWN ALLERGIES - NKA Allergy Mild Uncoded 08/27/22 12:00 Worker's Comp Is this a Worker's Comp case?: No [facility] Disclaimer: The information contained in this section may have been updated after the patient was seen, as this information can be updated by other users. Social History Smoking Status: Former smoker alcohol intake: never substance use type: denies use current occupational status: employed Travel in the last 8 weeks: None household members: family housing: house current occupation: teacher caffeine: Yes ROS Obtained: Yes All system
[2022-08-27 13:05] VITALS: BP 148/81; PULSE 99; RESP 20; TEMP 36.9; O2SAT 97
== END 2022-08-27 13:04 | disposition home or self-care (01) ==
PROVIDERS: Emergency Provider Nurse Practitioner Family; PCP Internal Medicine Adolescent Medicine
DX: J01.90 Acute sinusitis, unspecified (principal); H10.32 Unspecified acute conjunctivitis, left eye; Z87.891 Personal history of nicotine dependence; E78.5 Hyperlipidemia, unspecified
CPT/HCPCS: 99212; 99214; C9803; G0463; U0003; U0005

== ENCOUNTER → 2022-11-25 10:56 | Outpatient (CLI) | payer BC, SELFPAY ==
[2022-11-25 12:13] LABS: Hemoglobin A1C 6.6 % (4.0-6.0)
[2022-11-25 12:40] LABS: Alanine Aminotransferase 66 U/L (12-78); Albumin Level 4.3 g/dl (3.5-5.0); Albumin/Globulin Ratio 1.4 (1.1-1.8); Alkaline Phosphatase 128 U/L (38-126); Anion Gap 14.7 mEq/L (5-15); Aspartate Amino Transferase 39 U/L (14-36); Bilirubin,Total 0.7 mg/dl (0.2-1.3); Blood Urea Nitrogen 15 mg/dl (7-17); Calcium 9.2 mg/dl (8.4-10.2); Carbon Dioxide 23 mmol/L (22.0-30.0); Chloride 105 mmol/L (98-107); Chol/HDL Ratio 6.1 (1-3.5); Cholesterol 263 mg/dl (140-200); Estimated Glomerular Filt Rate 89 ml/min (>60); GFR (African American) 107 ML/MIN (>60); Glucose 118 mg/dl (74-100); HDL Cholesterol 43 mg/dl (40-60); Potassium 4.7 mmoL/L (3.5-5.1); Sodium 138 mmol/L (136-145); Total Protein,Serum 7.3 g/dl (6.3-8.2); Triglycerides 302 mg/dl (30-150); VLDL Cholesterol 60 mg/dL (0-40)
[2022-11-25 12:46] LABS: Basophils % 0.6 % (0.1-2.0); Eosinophils # 0.2 K/mm3 (0.0-0.4); Eosinophils % 3.4 % (0.1-12.0); Hematocrit 42.9 % (37.0-47.0); Hemoglobin 13.9 g/dL (12.2-16.2); Lymphocytes # 1.8 K/mm3 (0.7-4.5); Lymphocytes % 24.6 % (10-50); Mean Corpuscular HGB Conc 32.3 g/dL (31.8-35.4); Mean Corpuscular Hemoglobin 30.3 pg (27.0-31.2); Mean Corpuscular Volume 93.8 fl (81-99); Mean Platelet Volume 8.8 fl (7.4-10.4); Monocytes # 0.4 K/mm3 (0.1-1.0); Monocytes % 5.8 % (1.7-9.3); Neutrophils # 4.7 K/mm3 (1.8-7.8); Neutrophils % 65.6 % (37.0-80.0); Platelet Count 284 K/mm3 (142-424); Red Blood Count 4.57 M/mm3 (4.20-5.40); Red Cell Distribution Width 13.3 % (11.5-17.5); White Blood Count 7.2 K/mm3 (4.8-10.8)
[2022-11-25 13:10] LABS: Thyroid Stimulating Hormone 0.68 uIU/mL (0.465-4.68)
== END ==
PROVIDERS: PCP Nurse Practitioner Family; Visit Provider Nurse Practitioner Family
DX: Z00.00 Encounter for general adult medical examination without abnormal findings (principal); R53.83 Other fatigue
CPT/HCPCS: 36415; 80053; 80061; 83036; 84443; 85025

== ENCOUNTER → 2022-12-01 14:34 | Outpatient (CLI) | payer BC, SELFPAY ==
[2022-12-01 15:52] VITALS: BMI 47.0
--- NOTE | 2022-12-01 15:53 | MM_ITS ---
PROCEDURE INFORMATION: Exam: MG Bilateral Screening 3D Mammography Exam date and time: 12/01/2022 3:46 PM Age: 52 years old Clinical indication: Screening examination TECHNIQUE: Imaging protocol: Bilateral Screening tomosynthesis and 2D mammography including computer-aided detection (CAD) when performed. COMPARISON: 1. MG MM DIG SCREENING MAMM BI W/CAD 12/24/2020 4:52 PM 2. MG DIG MAMM-SCREEN JOCELYN 11/14/2018 8:36 AM FINDINGS: MAMMOGRAPHY: Breast composition: The breasts are almost entirely fatty. Mass: None. Architectural distortion: None. Calcifications: No suspicious calcifications. Asymmetric density: None. Skin thickening: None. Axillary adenopathy: None. IMPRESSION: No mammographic evidence of malignancy. Annual screening is recommended unless otherwise clinically indicated. ASSESSMENT: BI-RADS Category 1: Negative
== END ==
PROVIDERS: PCP Nurse Practitioner Family; Visit Provider Nurse Practitioner Family
DX: Z12.31 Encounter for screening mammogram for malignant neoplasm of breast (principal); Z71.3 Dietary counseling and surveillance; R73.03 Prediabetes
CPT/HCPCS: 77063; 77067; 97802

== ENCOUNTER 2024-01-23 16:30 | Outpatient (CLI) | payer BC, SELFPAY ==
--- NOTE | 2024-01-23 16:34 | MM_ITS ---
PROCEDURE INFORMATION: Exam: MG Bilateral Screening 3D Mammography Exam date and time: 01/23/2024 4:17 PM Age: 53 years old Clinical indication: Screening examination TECHNIQUE: Imaging protocol: Bilateral Screening tomosynthesis and 2D mammography including computer-aided detection (CAD) when performed. COMPARISON: 1. MG MM DIG SCREENING MAMM BI W/CAD 12/01/2022 3:46 PM 2. MG MM DIG SCREENING MAMM BI W/CAD 12/24/2020 4:52 PM FINDINGS: MAMMOGRAPHY: Breast composition: There are scattered areas of fibroglandular density. Mass: None. Architectural distortion: None. Calcifications: No suspicious calcifications. Asymmetric density: None. Skin thickening: None. Axillary adenopathy: None. IMPRESSION: No mammographic evidence of malignancy. Annual screening is recommended unless otherwise clinically indicated. ASSESSMENT: BI-RADS Category 1: Negative
== END 2024-01-23 23:59 | disposition home or self-care (01) ==
LOC: RAD 16:31
PROVIDERS: PCP Nurse Practitioner Family; Visit Provider Nurse Practitioner Family
DX: Z12.31 Encounter for screening mammogram for malignant neoplasm of breast (principal)
CPT/HCPCS: 77063; 77067

== ENCOUNTER 2024-05-08 16:00 | Outpatient (RCR) | payer BC, SELFPAY ==
--- NOTE | 2024-04-03 17:23 | HMH.PTOPEV ---
PT Outpatient Evaluation Rehab PT Outpatient Evaluation Start: 04/03/24 16:03 Freq: Status: Active Protocol: Document 04/03/24 16:04 KIET (Rec: 04/03/24 17:23 KIET [id number]) E-signed By Meeta Sanchez, PT Outpatient Therapy Subjective History Subjective History Pt is a 53 y/o female who reports intermittent low back pain exacerbated by repetitive lifting boxes at work ~1 month ago. Pt reports gradual improvement in pain since onset, states she was prescribed steroids with decreased intensity of pain but did not abolish it. Pt reports current symptoms of central low back pain with intermittent numbness/tingling sensations that radiate from her low back to between her shoulder blades. Pt denies current distal LE symptoms or paresthesia, but does reports this has occurred in the past R>L leg. Pt denies b/b dysfunction or saddle anesthesia. Pt denies having recent imaging of the back, but states she had a lumbar MRI 2 zaldiv[place] ago when she heard a pop that resulted in low back pain while taking out her trash. Pt reports previous MRI findings of lumbar bulging discs. Pt reports pain is aggravated by bending, lifting and prolonged sitting or standing. Occupation: nursery school teacher Medical History: Pre-diabetes, Hypertension, Hyperlipidemia Core strength: 4-/5 New diagnosis of cancer in past 12 No months? Chief Complaint Pain Symptom Type Ache,Sharp,Dull,Numbness, Tingling Symptoms Relieved By Rest/Positioning,Heat,OTC Meds Symptoms Aggravated By Standing,Bending/Stooping, Physical Activity,Lifting Current Functional Limitations Lifting,Housework,Standing, Sitting,Bending/Stooping Symptom Description Intermittent Level of pain today (0-10) 1 Pain scale - at its best (0-10) 0 Pain scale - at its worst (0-10) 7 Lumbopelvic Eval Palapation tenderness bilateral lumbar spinal tenderness Yes: L3-L5 Lumbar/Sacral Palpation Findings Tenderness Lumbar/Sacral Palpation Overall Comment 1-2/4 TTP Accessory Movement L-spine Vertebrae Accessory Movements Central P/A [place] that Elicit Symptoms L3 bilateral L4 bilateral L5 bilateral S1 bilateral Range of Motion Lumbar Spine Active Flexion Range of 90 Motion (degrees) Lumbar Spine Active Extension Range of 10 Motion (degrees) Left Lumbar Spine Lateral Flexion Active 5 Range of Motion (degrees) Right Lumbar Spine Lateral Flexion 5 Active Range of Motion (degrees) Manual Muscle Test Bilateral Knee Extension Strength Grade 5 Normal Knee Flexion Strength Grade 5 Normal Hip Flexion Strength Grade 4 Good Hip Abduction Strength Grade 4 Good Hip Adduction Strength Grade 4 Good Hip Extension Strength Grade 4 Good Ankle Dorsiflexion Strength Grade 5 Normal DTR Rt Patellar 1+ Lt Patellar 1+ Rt Gastroc/Soleus 1+ Lt Gastroc/Soleus 1+ Altered Sensation Bilateral Comment equal and intact to light touch sensation Special Tests Hip Freddy (JOE) Test Negative Left,Negative Right Sciatic Nerve Tension Test Negative Left,Negative Right Unilateral Straight Leg Raise (Lasegue) Negative Left,Negative Right Test Oswestry Index Section 1 Pain Intensity The pain comes and goes and is moderate Section 2 Personal Care (Washing,Dresing) change my way of washing or dressing in order to avoid pain Section 3 Lifting I can lift heavy weights, but it gives me extra pain Section 4 Walking I have some pain when walking but it does not increase with distance Section 5 Sitting I can sit in my favorite chair for as long as I like Section 6 Standing I can stand as long as I want without pain Section 7 Sleeping I get pain in bed, but it does not prevent me from sleeping well Section 8 Social Life My social life is normal but increases the degree of pain Section 9 Traveling I get some pain when traveling , but none of my usual forms of travel m Section 10 Changing Degreee of Pain My pain fluctuates, but overall is definitely getting better Score and Risk Level Oswestry Sc 9 Oswestry Risk Level Mild Disability Outpatient Therapy Assessment Impairments Problems/Impairmments Palpation Tenderness,Impaired Range of Motion,Impaired Strength,Impaired Standing, Impaired Sitting,Impaired Lifting,Impaired Household Care,Impaired Work Activities, Subjective C/O Pain,Impaired Self Care/Self Management Prognosis Rehab Potential Good Clinical Impression Consistent with Diagnosis Yes Consistent with low back pain without radiculopathy Short Term Goals Number of Weeks 3 Restore Ability to Lift Objects to Waist Yes: demonstrate proper Level lifting mechanics to prevent reinjury Decrease Subjective C/O Pain Yes: Improve pain at worst to 5/10 to improve overall QOL Improve Self Care/Self Management Yes Patient to be Ind w/ HEP Yes Shelter Goals Number of Weeks 6 Decreased Palpation Tenderness Yes: 0-1/4 TTP of L3-L5, S1 Increase Range of Motion Yes: Improve lumbar extension & LF AROM to at least 15 Increase Strength Yes: Improve core strength to at least 4/5, hip strength to 4+-5/5 Restore Ability to Lift Objects to Waist Yes: 20-30# with proper Level mechanics to assist with work Improve Oswestry Score Yes: to improve overall QOL Decrease Subjective C/O Pain Yes: Improve pain at worst to 3/10 to improve overall QOL Outpatient Therapy Plan of Care Treatment Plan May Include Therapeutic Exercise Including Home Yes Exercise Program Manual Therapy Techniques Yes Neuromuscular Re-education Yes Therapeutic Activities to Return to Yes Previous Functional/Work Level ADL/Self Care Education Yes Mechanical Traction Yes Dry Needling Yes Thermal Modalities Yes Electrical Stimulation Yes Ultrasound/Phonophoresis Yes Iontophoresis Yes Massage Yes Eval/Re-Eval Yes Frequency Times per week 2 Duration Number of Weeks 4-6 Addendums This patient is a candidate for social No or vocational rehab? Patient/Guardian verbally acknowledges Yes understanding of treatment program and consents to further treatment? Patient/Guardian verbally acknowledges Yes understanding of diagnosis, prognosis and goals for treatment? Eval Complexity PT Charges 92049 - Low Complexity Shoulder/Elbow Eval Shoulder Objective Measurements Elbow Objective Measurements PHYSICIAN CERTIFICATION: I certify the specified therapy services for Sparkle Ramirez Ruff are required, authorized, and reviewed every 30 days.
--- NOTE | 2024-05-01 17:14 | HMH.RHREAS ---
Rehab Reassessment Rehab OP Re-assessment Start: 04/03/24 16:03 Freq: Status: Active Protocol: Document 05/01/24 16:15 KIET (Rec: 05/01/24 17:14 KIET [id number]) E-signed By Meeta Sanchez, PT Oswestry Index Section 1 Pain Intensity The pain comes and goes and is very mild Section 2 Personal Care (Washing,Dresing) change my way of washing or dressing in order to avoid pain Section 3 Lifting I can lift heavy weights, but it gives me extra pain Section 4 Walking I have some pain when walking but it does not increase with distance Section 5 Sitting I can sit in my favorite chair for as long as I like Section 6 Standing I have some pain on standing, but it does not increase with time Section 7 Sleeping I get no pain in bed Section 8 Social Life My social life is normal and gives me no extra pain Section 9 Traveling I get some pain when traveling , but none of my usual forms of travel m Section 10 Changing Degreee of Pain My pain fluctuates, but overall is definitely getting better Score and Risk Level Oswestry Sc 6 Oswestry Risk Level Mild Disability Rehab Re-assessment Subjective Subjective Pt reports she feels 80% improved since starting PT. Pt reports continued central low back pain rated 2/10 at worst that occurs mostly with lifting. Pt reports she has been avoiding lifting activities as much as possible although did shovel gravel with only minimal report of back pain following. Pt reports she is still unclear on proper lifting mechanics and would like to further work on this in PT. Objective Objective Notes Palpation: / TTP of L5-S1 segment Lumbar AROM: flex 105, ext 25, LLF 15, RLF 12 p! Hip strength: 08/24 grossly Assessment Progress Assessment Progressing as Expected Assessment Notes Pt has attended 5 PT treatment sessions since her initial evaluation. PT treatment has consisted of aerobic exercise, lumbar mobility, hip/core strengthening, LE stretching, manual therapy and modalities with good tolerance. Pt demonstrated improved MICHELLE, subjective report of pain and lumbar AROM this date compared to the initial evaluation. Overall the pt would continue to benefit from skilled PT to further improve core/hip strength, lifting mechanics, and functional activity tolerance to improve overall QOL. Patient goals met ST/4 LT/6 Goals Not Met lifting mechanics, lifting without pain, hip/core strength Revised Goals n/a Plan Plan Continue initial POC Frequency of Therapy 1-2x/week Duration of therapy 4 more weeks Time and Billing Re-Eval Time 10 Re-Eval Billing Units 0 Charge for PT reassessment? No Charge for OT reassessment? No PHYSICIAN CERTIFICATION: I certify the specified therapy services for [facility] are required, authorized, and reviewed every 30 days.
== END 2024-05-08 23:59 | disposition home or self-care (01) ==
LOC: PT 16:00
PROVIDERS: PCP Nurse Practitioner Family; Visit Provider Nurse Practitioner Family
DX: M54.16 Radiculopathy, lumbar region (principal)
CPT/HCPCS: 97014; 97110; 97140; 97163; G0283

== ENCOUNTER 2024-12-28 08:53 | Outpatient (CLI) | payer BC, SELFPAY ==
[2024-12-28 10:04] LABS: Alanine Aminotransferase 39 U/L (12-78); Albumin Level 4.3 g/dl (3.5-5.0); Albumin/Globulin Ratio 1.7 (1.1-1.8); Alkaline Phosphatase 106 U/L (38-126); Anion Gap 10.3 mEq/L (5-15); Aspartate Amino Transferase 34 U/L (14-36); Bilirubin,Total 0.6 mg/dl (0.2-1.3); Blood Urea Nitrogen 16 mg/dl (7-17); Calcium 9.3 mg/dl (8.4-10.2); Carbon Dioxide 26 mmol/L (22.0-30.0); Chloride 106 mmol/L (98-107); Cholesterol 138 mg/dl (140-200); Creatinine,Serum 0.60 mg/dl (0.52-1.04); Estimated Glomerular Filt Rate 105 ml/min (>60); GFR (African American) 127 ML/MIN (>60); Globulin 2.5 g/dL (1.3-3.2); Glucose 92 mg/dl (74-100); HDL Cholesterol 50 mg/dl (40-60); Potassium 4.3 mmoL/L (3.5-5.1); Sodium 138 mmol/L (136-145); Total Protein,Serum 6.8 g/dl (6.3-8.2); Triglycerides 116 mg/dl (30-150)
[2024-12-28 10:22] LABS: Hemoglobin A1C 5.6 % (4.0-6.0)
== END 2024-12-28 23:59 | disposition home or self-care (01) ==
LOC: LAB 08:58
PROVIDERS: PCP Nurse Practitioner Family; Visit Provider Nurse Practitioner Family
DX: Z00.00 Encounter for general adult medical examination without abnormal findings (principal); E78.5 Hyperlipidemia, unspecified; E11.9 Type 2 diabetes mellitus without complications
CPT/HCPCS: 36415; 80053; 80061; 83036

== ENCOUNTER 2025-01-23 16:13 | Outpatient (CLI) | payer BC, SELFPAY ==
--- NOTE | 2025-01-23 16:20 | MM_ITS ---
PROCEDURE INFORMATION: Exam: MG Bilateral Screening 3D Mammography Exam date and time: 01/23/2025 4:19 PM Age: 54 years old Clinical indication: Screening mammogram TECHNIQUE: Imaging protocol: Bilateral Screening tomosynthesis and 2D mammography including computer-aided detection (CAD) when performed. COMPARISON: 1. MG MM DIG SCREENING MAMM BI W/CAD 01/23/2024 4:17 PM 2. MG MM DIG SCREENING MAMM BI W/CAD 12/01/2022 3:46 PM 3. MG MM DIG SCREENING MAMM BI W/CAD 12/24/2020 4:52 PM FINDINGS: MAMMOGRAPHY: Breast composition: There are scattered areas of fibroglandular density. Mass: None. Architectural distortion: No new or suspicious architectural distortion. Calcifications: No new or suspicious calcifications are present Asymmetric density: No new or suspicious asymmetric density is present Skin thickening: None. Axillary adenopathy: None. IMPRESSION: No mammographic evidence of malignancy. Recommend annual screening mammography unless otherwise clinically indicated. ASSESSMENT: BI-RADS category 1: Negative.
== END 2025-01-23 23:59 | disposition home or self-care (01) ==
LOC: RAD 16:14
PROVIDERS: PCP Nurse Practitioner Family; Visit Provider Nurse Practitioner Family
DX: Z12.31 Encounter for screening mammogram for malignant neoplasm of breast (principal); R92.323 Mammographic fibroglandular density, bilateral breasts
CPT/HCPCS: 77063; 77067